=== PATIENT | male | born 1960 | race Caucasian/White ===

== ENCOUNTER 2021-04-12 06:00 | Day surgery (SDC) | payer OTHER, SELFPAY ==
[~2021-04-12] VITALS: Ht 177.8 cm; Wt 67.6 kg
[2021-04-12] MEDS ORDERED: GLYCOPYRROLATE 0.2 MG/ML VIAL ONE (06:57)
[2021-04-12] MEDS ORDERED: MEPERIDINE 100 MG INJ. 100 MG/ML VIAL ONE (06:57)
[2021-04-12] MEDS ORDERED: MIDAZOLAM HCL 5 MG/5 ML VIAL ONE ×2 (06:57→09:44)
[2021-04-12] MEDS ORDERED: SIMETHICONE 40 MG/0.6 ML ML ONE (06:58)
[2021-04-12 08:15] VITALS: BP_SYST 122
== END 2021-04-12 09:10 | disposition home or self-care (01) ==
LOC: SDS 06:00 → SMU 06:00 → SDS 09:10
PROVIDERS: ATTEND Colon & Rectal Surgery
DX: Z12.11 Encounter for screening for malignant neoplasm of colon (principal); K57.30 Diverticulosis of large intestine without perforation or abscess without bleeding; E78.5 Hyperlipidemia, unspecified; K21.9 Gastro-esophageal reflux disease without esophagitis; Z79.899 Other long term (current) drug therapy; Z20.822 Contact with and (suspected) exposure to COVID-19
CPT/HCPCS: 45378; G0378; J2175; J2250; U0003; J3490